=== PATIENT | female | born 1970 | race Caucasian/White ===

== ENCOUNTER 2019-09-17 06:18 | Observation (INO) | payer MEDICAID, SELFPAY ==
[2019-09-17] VITALS (7 sets, daily range): BP systolic 92–141; BP diastolic 61–81; PULSE 53–86; RESP 16–20; TEMP 36.1–37.1; O2SAT 96–99; BMI 36.0
--- NOTE | ~2019-09-17 | XR_ITS ---
XR hip LT 2V w AP pelvis DATE: 09/17/2019 07:11 INDICATION: Back pain and left hip pain for 2 days; no known injury. TECHNIQUE: AP pelvis. AP and lateral views of left hip. COMPARISON: 11/23/2014 left hip, reported negative FINDINGS: No pelvic fracture or bone destruction. The pubic symphysis and sacroiliac joints are intac t. No fracture, dislocation, avascular necrosis or bone destruction of the left hip. IMPRESSION: No significant abnormality Reviewed, dictated and finalized at location A. NURSE IMPRESSION: No significant abnormality
--- NOTE | ~2019-09-17 | XR_ITS ---
XR lumbar spine 2-3V DATE: 09/17/2019 07:11 INDICATION: Back and hip pain for 2 days. No known injury. TECHNIQUE: AP, lateral, coned lateral lumbosacral views COMPARISON: 11/23/2014 lumbar spine FINDINGS: Surgical clips, right upper quadrant, consistent with cholecystectomy. No fracture or bone destruction is evident. The lumbar and included lower thoracic pedicles are intac t. There is mild degenerative spurring of the lumbar spine but the lumbar and lumbosacral interspaces are relatively preserved. No spondylolisthesis. Normal sacroiliac joints. IMPRESSION: Mild degenerative change, increased since 11/23/2014 Reviewed, dictated and finalized at location A. CHER
--- NOTE | 2019-09-17 06:39 | ED.GENADULT ---
HPI - General Adult General Chief complaint: Extremity Injury, Lower Stated complaint: back pain, left leg pain Time Seen by Provider: 09/17/19 06:39 Source: patient Mode of arrival: ambulatory History of Present Illness HPI narrative: Ms. Alan is a 49 year old woman who presents with leg, hip and back pain. She reports that she is in a general state of good health having no chronic conditions and taking no routine medications. She states that for several days she has had pain that seems to start in the lumbar back and radiates down the leg. The worst pain is in the hip and upper thigh. She notices this pain with any movement of the leg or rotation of the hip. SHe denies any particular injury. There is no numbness or weakness. No incontinence. Related Data Home Medications Medication Instructions Recorded Confirmed No Home Medications 09/17/19 09/17/19 Allergies Allergy/AdvReac Type Severity Reaction Status Date / Time ibuprofen Allergy Severe Swelling Verified 09/17/19 06:43 of Lip/Tongue/Throat meperidine [From Demerol] Allergy Severe Swelling Verified 09/17/19 06:43 of Lip/Tongue/Throat Review of Systems Constitutional: Constitutional: Denies fatigue, Denies fever(s) and Denies weakness Eyes: Eyes: Denies blurry vision, Denies itchy eyes and Denies other visual disturbances ENT: Denies dizziness, Denies hearing loss, Denies nasal discharge and Denies sore throat Cardiovascular: Cardiovascular: Denies chest pain and Denies dyspnea Respiratory: Respiratory: Denies cough, Denies dyspnea and Denies wheezing Gastrointestinal: Gastrointestinal: Denies diarrhea, Denies nausea and Denies vomiting Genitourinary: Genitourinary: Denies difficulty starting urination, Denies dysuria and Denies urinary urgency Musculoskeletal: Musculoskeletal: Denies muscle weakness Integumentary/Breasts: Skin/Breast: Denies rash and Denies wounds Neurologic: Denies dizziness and Denies weakness Psychiatric: Psychiatric: Denies anxiety, Denies depression and Denies suicidal ideation Endocrine: Endocrine: Denies cold intolerance, Denies fatigue and Denies heat intolerance Allergic/Immunologic: Allergic/Immunologic: Denies itchy eyes, Denies seasonal rhinorrhea and Denies wheezing PMF Family History Family History (Updated 11/06/17 @ 00:00 by CONVUSER A) Other Family history of type 2 diabetes mellitus Exam Const: General: cooperative, healthy appearing, no acute distress, well developed and alert; No poor hygiene Nutritional Appearance: overweight Orientation/consciousness: oriented to person, oriented to place and oriented to time Limitations: No physical limitations HENMT: Head: normal to inspection Ears: hearing grossly normal bilaterally and external ears normal General nose exam: external nose normal Face and sinus: face symmetric and no abrasions Mouth: Yes oral mucosae normal, Yes lip normal, Yes tongue normal, Yes moist mucous membranes and No drooling Teeth and gingiva: dentition normal and gingiva normal Throat: posterior oropharynx normal and uvula midline Eyes: General: appearance normal, both eyes and all related structures Periorbital: periorbital findings normal Eyelids: eyelids normal Conjunctivae: conjunctivae normal Pupils: PERRL EOM: EOM intact bilaterally Neck: Neck: normal visual inspection Resp: Effort & Inspection: able to speak in complete sentences and no respiratory distress Auscultation: clear to auscultation bilaterally, no crackles, no rhonchi and no wheezes Cardio: Jugular venous distension: no JVD Rate: regular rate Rhythm: regular rhythm Heart sounds: no gallops, no murmurs and no rubs Back/Spine/Pelvis: Other: tenderness elicitis upon palpation of the left side paraspinous musculature; no spasm noted. Pain with active and passive motion across the hip. Positive straight leg. Pain with palpation of the left thigh. Skin: General skin exam: no rashes or les
--- NOTE | 2019-09-17 07:54 | ED.LOWEXIN ---
HPI - Extremity Injury (Lower) General Chief Complaint: Extremity Injury, Lower Stated Complaint: back pain, left leg pain Time Seen by Provider: 09/17/19 06:39 Source: patient Mode of arrival: ambulatory Related Data Allergies Allergy/AdvReac Type Severity Reaction Status Date / Time ibuprofen Allergy Severe Swelling Verified 09/17/19 06:43 of Lip/Tongue/Throat meperidine [From Demerol] Allergy Severe Swelling Verified 09/17/19 06:43 of Lip/Tongue/Throat Review of Systems Review of Systems: All systems reviewed & are unremarkable except as noted in HPI and below PMFSH Past Medical History Medical History (Updated 09/17/19 @ 07:57 by Fermin Silver MD) Sciatica Family History Family History (Updated 11/06/17 @ 00:00 by CONVUSER A) Other Family history of type 2 diabetes mellitus Exam Const: General: no acute distress and alert Orientation/consciousness: oriented x3 HENMT: Head: normal to inspection Eyes: Pupils: PERRL Chest: Chest palpation & inspection: normal inspection of the chest Resp: Effort & Inspection: normal respiratory effort Cardio: Rate: regular rate Rhythm: regular rhythm GI: GI Palp: Yes soft Percussion: Yes normal to percussion : General: Yes no CVA tenderness Back/Spine/Pelvis: Back: no CVA tenderness Neuro: General: oriented x3 Extrem: Other: positive straight leg on the left Psych: Mental Status: mental status grossly normal Course Vital Signs Vital signs: Vital Signs Temperature 36.6 C 09/17/19 06:20 Pulse Rate 65 09/17/19 06:20 Respiratory Rate 18 09/17/19 06:20 Blood Pressure 136/65 09/17/19 06:20 Pulse Oximetry 98 09/17/19 06:20 Temperature 36.6 C 09/17/19 06:20 Pulse Rate 65 09/17/19 06:20 Respiratory Rate 18 09/17/19 06:20 Blood Pressure 136/65 09/17/19 06:20 Pulse Oximetry 98 09/17/19 06:20 Critical Care Time Critical Care Time Critical Care Time: No Discharge Plan Discharge Clinical Impression: Sciatica Patient Disposition: Home, Self-Care Condition: Stable Instructions: Antibiotic Form, Sciatica (ED) Prescriptions: New oxycodone-acetaminophen [Percocet] 5-325 mg tablet 1 tablet PO Q4H PRN (Reason: pain) Qty: 20 RF: 0 cyclobenzaprine 5 mg tablet 5 mg PO TID Qty: 20 RF: 0 Follow-up/Referrals: UNKNOWN,DOCTOR [Primary Care Provider] - Stand Alone Forms: Work/School Release IP Time of Disposition: 07:59
[2019-09-17] MEDS: MORPHINE SULFATE 4 MG/ML INJ IM (08:04)
[2019-09-17] MEDS: ORPHENADRINE CITRATE 30 MG/ML 2 ML VIAL 60 MG IM (08:07)
--- NOTE | 2019-09-17 08:51 | PC.NURSE ---
PT ATTEMPTED TO GET UP FROM COT. BECAME LIGHTHEADED AND DIZZY. I FEEL LIKE IM GOING TO PASS OUT . BP=83/58 PT ASSISTED BACK TO LAYING POSITION. ERP NOTIFIED OF SAME. ALLOW PT TO REST AND REEVALUATE.
--- NOTE | 2019-09-17 09:16 | PC.NURSE ---
ATTEMPTED TO SIT PT UP IN COT AT 90 DEGREE ANGLE. PT UNABLE TO TOLERATE. SCREAMING WITH PAIN LET ME DOWN . LOWERED HEAD OF BED TO 45 DEGREE, PT CONTINUES WITH PAIN 10/10 , COMPLAINT OF INCREASED MUSCLE SPASM. PT LOWERED TO 15 DEGREE ANGLE. TOLERATES THIS POSITION. ERP NOTIFIED.
--- NOTE | 2019-09-17 10:31 | ADMGEN ---
This patient, Leatha Alan, was admitted to 2nd Floor Room 204-2. Patient/family oriented to hospital policies and general routines including ID bracelet, bed and alarms, visiting hours, pain management, procedures, bathroom and other care routines, personal items, smoking policy, room service/diet, and visiting hours. Valuables list has been completed. Information on how to activate the Rapid Response Team has been discussed. Patient/Family are encouraged to report perceived risks to care and to ask questions if they do not understand what they are told or what they should do.
[2019-09-17] MEDS: MORPHINE SULFATE 2 MG/ML INJ IV PUSH ×2 (10:51→18:39)
[2019-09-17] MEDS: SODIUM CHLORIDE 0.9% IV 1,000 ML 100 ML IV CONT ×2 (10:51→20:51)
--- NOTE | 2019-09-17 10:52 | PC.NURSE ---
IV fluids started per order. IV site clean dry and intact. Pt. states she is feeling much better than she was earlier. Warm pack applied to left hip, Pt. reports improvement with heat being applied.
--- NOTE | 2019-09-17 15:25 | PC.NURSE ---
Pt. resting quietly in bed. States pain is under control. Denies any needs at this time.
--- NOTE | 2019-09-17 15:49 | PM.IMHP ---
H&P: HPI History of Present Illness Chief complaint: back pain, left leg pain Narrative: Leatha Alan is a 49 year old female admitted with left leg pain, back pain, hip pain and upper thigh pain. She underwent Lumbar Spine and Hip /Pelvis xrays that showed progressing DJD of Lumbar Spine. She was diagnosed with DJD of Lumbar Spine with Sciatica and Radiculopathy; treated with Percocet and cyclobenzaprine. Will monitor her for pain control overnight. Ordered labs: CBC, CMP, TSH. 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 Review of Systems Review of Systems: Narrative: Significant lower left back pain, worse with straight leg raise. Sensory intact, no numbness or tingling or weakness noted on exam. But patient stated the left leg feels different inside. All systems reviewed & are unremarkable except as noted in HPI and below Constitutional: Constitutional: Reports as per HPI, Reports no additional constitutional complaints, Denies body ache(s), Denies chills, Denies fatigue, Denies lethargy and Denies weakness Eyes: Eyes: Reports as per HPI ENT: Denies system reviewed and no additional complaints, except as documented and Reports as per HPI Cardiovascular: Cardiovascular: Reports as per HPI Respiratory: Respiratory: Reports as per HPI Gastrointestinal: Gastrointestinal: Reports as per HPI Genitourinary: Genitourinary: Reports as per HPI Musculoskeletal: Musculoskeletal: Reports as per HPI Integumentary/Breasts: Skin/Breast: Reports as per HPI Neurologic: Reports as per HPI Psychiatric: Psychiatric: Reports as per HPI [facility] Past Medical History Medical History Sciatica Family History Family History Mother Hypertension Father Cancer Other Family history of type 2 diabetes mellitus Social History Social History Smoking status: Never smoker Second hand tobacco smoke exposure: No Alcohol intake: never Substance use: never Substance use type: does not use Gender identity (if verbalized by the patient): Female Spiritual care concerns: No Agree to blood products: Yes Meds Home Medications and Allergies Home Medications Medication Instructions Recorded Confirmed Type cyclobenzaprine 5 mg PO TID #20 tablet 09/17/19 Rx oxycodone-acetaminophen [Percocet] 1 tablet PO Q4H PRN #20 tablet 09/17/19 Rx Allergies Allergy/AdvReac Type Severity Reaction Status Date / Time ibuprofen Allergy Severe Swelling Verified 09/17/19 06:43 of Lip/Tongue/Throat meperidine [From Demerol] Allergy Severe Swelling Verified 09/17/19 06:43 of Lip/Tongue/Throat Vital Signs Vital Signs - 24 hr 09/17/19 06:20 09/17/19 08:44 09/17/19 09:29 Temperature 36.6 C 36.9 C Pulse Rate 65 78 86 Respiratory Rate 18 18 20 Blood Pressure 136/65 138/81 134/62 Pulse Oximetry 98 97 99 09/17/19 09:45 09/17/19 09:50 Temperature 36.1 C L Pulse Rate 73 53 L Respiratory Rate 20 16 Blood Pressure 134/78 123/70 Pulse Oximetry 98 99 Exam Narrative: Exam Narrative: Sensory tests are all equal and WNL. but the patient stated that her LEFT leg feels different inside , not painful or red or swollen. Const: General: no acute distress Eyes: General: appearance normal, both eyes and all related structures Neck: Neck: no JVD Chest: Chest palpation & inspection: normal inspection of the chest Resp: Effort & Inspection: normal respiratory effort Auscultation: clear to auscultation bilaterally, no crackles, no rales, no rhonchi, no wheezes and lung sounds not diminished Cardio: Rate: regular rate Rhythm: regular rhythm GI: Inspection: non-distended GI Palp: Yes soft, No firm, No tender, No guarding and No hernia Auscultati
[2019-09-17 16:06] LABS: Hemoglobin 12.5 g/dL (12.0-15.0); Mean Corpuscular HGB Conc 32.9 g/dL (32.0-36.0); Mean Corpuscular Hemoglobin 29.6 pg (27.0-31.0); Mean Corpuscular Volume 89.8 fL (78.0-102.0); Mean Platelet Volume 10.2 fl (9.2-11.8); Platelet Count Result 190 K/mm3 (150-420); Red Blood Count 4.23 M/mm3 (4.20-5.40); Red Cell Distribution Width 12.6 % (11.6-14.4); White Blood Count 6.9 K/mm3 (4.8-10.8)
[2019-09-17 16:37] LABS: Alanine Aminotransferase 25 U/L (14-59); Albumin Level 3.6 g/dL (3.4-5.0); Alkaline Phosphatase 104 U/L (46-116); Aspartate Amino Transferase 24 U/L (15-37); Bilirubin,Total 0.4 mg/dL (0.00-1.00); Blood Urea Nitrogen 18 mg/dL (7-18); Carbon Dioxide 28 mmol/L (21-32); Chloride 103 mmol/L (98-108); Estimated CRCL calculation 71 ml/min; Estimated Glomerular Filt Rate 56; Glucose 107 mg/dL (70-99); Osmolality Calculated 291 mOsm/kg (285-295); Sodium 140 mmol/L (136-145); Total Protein 7.2 g/dL (6.4-8.2)
[2019-09-17 16:41] LABS: Calcium 8.1 mg/dL (8.5-10.1)
[2019-09-17 16:48] LABS: Magnesium 1.9 mg/dL (1.8-2.4); Phosphorus 3.3 mg/dL (2.6-4.7); Thyroid Stimulating Hormone 2.16 uIU/mL (0.36-3.74)
[2019-09-17 18:20] LABS: Appearance Urine Clear (Clear); Bilirubin Urine Negative (Negative); Blood Urine Negative (Negative); Color Urine Yellow (Yellow); Glucose Urine UA Negative (Negative); Ketones Urine Negative (Negative); Leukocyte Esterase Ur Negative LEU/UL (Negative); Nitrate Urine Negative (Negative); Protein Urine Negative (Negative); Specific Grav Ur <= 1.005 (1.010-1.020); Urobilinogen Urine 0.2 mg/dL (0.2-1.0)
[2019-09-17 18:36] LABS: Add Urine Microscopic? NO
[2019-09-17] MEDS: CYCLOBENZAPRINE HCL 5 MG TABLET PO (21:06)
[2019-09-18 00:45] VITALS: BP 147/79; PULSE 62; RESP 18; TEMP 36.5; O2SAT 98
[2019-09-18 00:47] VITALS: BP 150/87; PULSE 67
[2019-09-18 00:48] VITALS: BP 150/92; PULSE 69
[2019-09-18] MEDS: MORPHINE SULFATE 2 MG/ML INJ IV PUSH ×2 (00:52→07:45)
[2019-09-18 04:00] VITALS: BP 132/85; PULSE 56; RESP 20; TEMP 36.4; O2SAT 99
[2019-09-18 06:18] LABS: Basophils Absolute Auto 0.02 K/mm3 (0.00-0.10); Basophils Percent Auto 0.4 % (0.0-1.0); Eosinophils Absolute Auto 0.04 K/mm3 (0.02-0.50); Eosinophils Percent Auto 0.7 % (1.0-6.0); Hematocrit 35.5 % (35.0-49.0); Hemoglobin 11.7 g/dL (12.0-15.0); Immature Granulocyte Absolute 0.01 K/mm3 (0.00-0.00); Immature Granulocyte Percent A 0.2 % (0.0-0.0); Lymphocytes Percent Auto 33.8 % (18.0-42.0); Mean Corpuscular Hemoglobin 29.9 pg (27.0-31.0); Mean Corpuscular Volume 90.8 fL (78.0-102.0); Mean Platelet Volume 10.6 fl (9.2-11.8); Monocytes Absolute Auto 0.49 K/mm3 (0.10-0.90); Monocytes Percent Auto 8.7 % (2.0-11.0); Neutrophils Absolute Auto 3.2 K/mm3 (1.7-7.2); Neutrophils Percent Auto 56.2 % (50.0-70.0); Platelet Count Result 186 K/mm3 (150-420); Red Blood Count 3.91 M/mm3 (4.20-5.40); Red Cell Distribution Width 12.8 % (11.6-14.4); White Blood Count 5.6 K/mm3 (4.8-10.8)
[2019-09-18 06:47] LABS: Anion Gap 11.8 mmol/L (7-16); Blood Urea Nitrogen 10 mg/dL (7-18); Calcium 7.9 mg/dL (8.5-10.1); Carbon Dioxide 27 mmol/L (21-32); Chloride 107 mmol/L (98-108); Estimated CRCL calculation 72 ml/min; Estimated Glomerular Filt Rate 57; Glucose 104 mg/dL (70-99); Osmolality Calculated 293 mOsm/kg (285-295); Potassium 3.8 mmol/L (3.5-5.1); Sodium 142 mmol/L (136-145)
[2019-09-18] MEDS: SODIUM CHLORIDE 0.9% IV 1,000 ML 100 ML IV CONT (06:53)
[2019-09-18 07:35] VITALS: BP 149/87; PULSE 56; RESP 18; TEMP 37.1; O2SAT 96
[2019-09-18] MEDS: PSYLLIUM POWDER PACKET 1 PACKET PO (08:39)
[2019-09-18] MEDS: LIDOCAINE 5% PATCH 2 PATCH TRANSDERM (08:46)
--- NOTE | 2019-09-18 09:21 | ECG_ITS ---
Measurements Intervals [place] Rate: 66 P: 59 SC: 139 QRS: 64 QRSD: 106 T: 11 QT: 402 QTc: 421 Interpretive Statements SINUS RHYTHM INCOMPLETE RIGHT BUNDLE BRANCH BLOCK BORDERLINE ST-T WAVE ABNORMALITY- ANT/INF LEADS BORDERLINE ECG Electronically Signed On 09-18-2019 9:06:08 [employer] by Junior Brar D.O.
[2019-09-18 12:00] VITALS: BP 140/62; BP 147/85; PULSE 62; PULSE 63; RESP 18; TEMP 36.4
--- NOTE | 2019-09-18 13:03 | PM.DS ---
DS: Diagnosis Admitting Diagnosis Admitting Diagnosis: Sciatica, unspecified side <Chastity Ellis NP - Last Filed: 09/18/19 13:20> Discharge Diagnosis (1) Sciatica: Onset Date: ~09/13/19 <Chastity Ellis NP - Last Filed: 09/18/19 13:20> Code(s): M54.30 - Sciatica, unspecified side <Chastity Ellis NP - Last Filed: 09/18/19 13:20> Status: Acute <Chastity Ellis NP - Last Filed: 09/18/19 13:20> Assessment and Plan: See the plan below for Lumbar radiculopathy DJD disease <Chastity Ellis NP - Last Filed: 09/18/19 13:20> (2) Lumbosacral radiculopathy due to degenerative joint disease of spine: Onset Date: ~09/13/19 <Chastity Ellis NP - Last Filed: 09/18/19 13:20> Code(s): M47.27 - Other spondylosis with radiculopathy, lumbosacral region <Chastity Ellis NP - Last Filed: 09/18/19 13:20> Status: Acute <Chastity Ellis NP - Last Filed: 09/18/19 13:20> Assessment and Plan: left leg pain, back pain, hip pain and upper thigh pain. Lumbar Spine and Hip /Pelvis xrays that showed progressing DJD has DJD of Lumbar Spine with Sciatica and Radiculopathy; DO not use Motrin - angioedema rxn. in the past. treated with morphine and cyclobenzaprine while in patient. Would prefer her to get an NSAID for best pain relief. She stated today that she takes and tolerates Aleve at home. She stated that it is only Ibuprofen/MOtrin that she cannot take. She said that she would be ok at home with Aleve for pain control. And the low dose Flexeril for muscle spasms. Pain and spasms are controlled today. Labwork is stable. may benefit from back support or brace - instructed her to F/U with Orthopedic surgeon and PCP. Needs to F/U with PCP to get referral to Pain Management physician use heat or ice , alternate for comfort. Ordered Tylenol and Lidocaine patches and cyclobenzaprine PRN at discharge. <Chastity Ellis NP - Last Filed: 09/18/19 13:20> (3) Uncontrolled pain: Onset Date: ~09/17/19 <Chastity Ellis NP - Last Filed: 09/18/19 13:20> Code(s): R52 - Pain, unspecified <Chastity Ellis NP - Last Filed: 09/18/19 13:20> Status: Acute <Chasitty Ellis NP - Last Filed: 09/18/19 13:20> Assessment and Plan: PCP Referral for Orthopedic Surgeon. Referral for Outpatient PT. After discharge, she will need to discuss with her PCP: physical therapy, PT exercises, back school, massage, ultrasound, transcutaneous muscle stimulation, and pain clinic care. She will need to participate in a regular exercise therapy program that may help prevent future exacerbations of low back pain. Exercise and movement-based therapies can be combined with cognitive behavioral therapy (CBT) and mind-body interventions (mindfulness-based stress reduction [MBSR], biofeedback, and progressive relaxation). Possibly use Acupuncture and/or Massage. ?Cyclobenzaprine 5 mg orally PRN as needed <Chastity Ellis NP - Last Filed: 09/18/19 13:20> DS: Summary Hospital Course Hospital Course: I have reviewed the discharge summary per Chastity Ellis APN. Exam at discharge lungs - clear to auscultation bilaterally, heart- regular rate and rhythm no rubs no murmurs, extremities- no cyanosis no clubbing no edema, back- tenderness over the left paraspinous muscles. <Rakan Aviles MD - Last Filed: 09/18/19 15:20> Time Spent with Patient Time attestation: Total time spent providing and/or coordinating discharge services: >45 minutes <Chastity Ellis NP - Last Filed: 09/18/19 13:20> Exam Narrative: Exam Narrative: Sensory tests are all equal and WNL. but the patient stated that her LEFT leg feels different inside , not painful or red or swollen. <Chastity Ellis NP - Last Filed: 09/18/19 13:20> Const: General: cooperative, healthy appearing, no acute distress, well developed and alert; No poor hygiene <Chastity Ellis, [employer] - Last Filed: 1
--- NOTE | 2019-09-18 13:45 | PC.NURSE ---
Pt. to be discharged home. All discharge instructions and education reviewed with pt. by nurse. Pt. states understanding. IV site removed, dressing applied to site, Site shows no signs of redness/edema. All belongings gathered and sent home with pt.. Pt. taken down to front door via wheelchair. Left in private vehicle with son. No questions or concerns at discharge.
--- NOTE | 2019-09-25 12:19 | PC.NURSE ---
Discharge call back [phone] no answer, message left.
== END 2019-09-18 13:45 | disposition home or self-care (01) ==
LOC: CHSED 09:23 → CHS2ND 09:31
PROVIDERS: Nurse Practitioner; Admitting Provider Emergency Medicine; Emergency Provider Emergency Medicine; Visit Provider Emergency Medicine
DX: M54.32 Sciatica, left side (principal); M47.26 Other spondylosis with radiculopathy, lumbar region
CPT/HCPCS: 36415; 72100; 73502; 73521; 80048; 80053; 81003; 83735; 84100; 84443; 85025; 85027; 93005; 96361; 96372; 96374; 96376; 99284; 99285; A9270; G0378; G0379; J2270; J2360; J7030